=== PATIENT | male | born 2000 | race Caucasian/White ===

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

== ENCOUNTER 2022-04-28 06:20 | Emergency (ER) | payer OTHER, SELFPAY ==
[2022-04-28 06:21] VITALS: BP 147/83; PULSE 98; RESP 18; TEMP 35.9; O2SAT 100; BMI 29.5
--- NOTE | 2022-04-28 07:11 | RAD_ITS ---
STUDY: X-RAY - ABDOMEN/PELVIS REASON FOR EXAM: Male, 22 years old. ABDOMINAL PAIN TECHNIQUE: AP abdomen radiographs COMPARISON: None. FINDINGS: Normal visualized lung bases. There is a nonobstructive bowel gas pattern. A large amount of stool throughout the large bowel. There is no demonstrated free abdominal air. The visualized liver, spleen and kidneys are grossly normal in size and morphology. Normal soft tissue structures. Normal visualized osseous structures. RAD/Abdomen Single View IMPRESSION: Substantial stool throughout the large bowel suggests constipation. Electronically Signed: Kike Chinchilla MD at 7:30 EDT ,
--- NOTE | 2022-04-28 07:12 | EX.ED.DYSGE1 ---
HPI History of Present Illness Chief Complaint: Constipation Informant: patient Narrative Narrative: This is a 22-year-old male presenting to the emergency room with left-sided abdominal pain and constipation. Patient states that typically he will have a bowel movement once a day. He recently spoke to his doctor about IBS symptoms and has a follow-up appointment on Tuesday. It was recommended that he increase his vegetable content. States he has been taking the powder which has not been helping. Last bowel movement was 3 days ago. He denies any fever. He has been able to eat and drink. He notes a significant amount of water consumption while at work. He is presenting to the emergency department today wanting to make sure that it was constipation that was causing his pain. He describes the pain as intermittent left-sided and likens it to a sharp ache. [facility] Medical History ADHD Asthma Constipation Depression Migraine Recurrent streptococcal tonsillitis Home Medications albuterol sulfate 90 mcg/actuation aerosol inhaler (Ventolin HFA) 2 puff inhalation Q4H PRN PRN Wheezing #8.5 grams 12/16/21 [Rx Last Taken Unknown] cetirizine 10 mg capsule (Zyrtec) 10 mg PO HS #30 caps 12/16/21 [Rx Last Taken Unknown] epinephrine 0.3 mg/0.3 mL injection, auto-injector (EpiPen) 0.3 mg (0.3 mL) IM ONCE #1 ea 12/16/21 [Rx Last Taken Unknown] psyllium husk (with sugar) 3.4 gram/7 gram oral powder (Metamucil (with sugar)) 1 tbsp PO DAILY #822 grams 12/16/21 [Rx Last Taken Unknown] bupropion HCl 150 mg tablet,12 hr sustained-release (Wellbutrin SR) 150 mg PO BID #60 ea 12/17/21 [Rx Last Taken Unknown] sertraline 25 mg tablet (Zoloft) 25 mg PO DAILY #30 tabs 12/17/21 [Rx Last Taken Unknown] docusate sodium 100 mg capsule (Colace) 100 mg PO BID #60 caps 04/28/22 [Rx Last Taken Unknown] magnesium citrate 300 ml PO X1 PRN constipation #2 BOTTLES 04/28/22 [Rx Last Taken Unknown] Allergy/AdvReac Type Severity Reaction Status Date / Time cat dander Allergy Mild Other Verified 12/16/21 15:22 iodine Allergy Hives Verified 12/16/21 15:11 venom-honey bee Allergy Laryngospas Verified 12/16/21 15:11 [bee venom (honey bee)] ms Family History Brother Anxiety Migraine Mother Asthma Depression Father Depression Social History household members: family Smoking Status: Never smoker alcohol intake: never substance use type: marijuana what type of physical activity do you participate in: weight training frequency: 3-4 times per week do you feel safe at home: Yes ROS ROS ED Constitutional Constitutional ED: Denies chills or weight loss Eyes Eyes: Denies change in vision or diplopia ENT ENT ED: Denies ear pain, rhinorrhea or sore throat Cardiovascular Cardiovascular: Denies chest pain, orthopnea, palpitations or racing heartbeat Respiratory/Chest Respiratory/Chest: Denies cough, dyspnea or orthopnea Gastrointestinal Gastrointestinal: Reports abdominal pain and constipation; Denies diarrhea, nausea or vomiting Genitourinary Genitourinary ED: Denies dysuria, hematuria or urinary frequency Musculoskeletal Musculoskeletal: Denies arthralgias or myalgias Integumentary Denies abscess or rash Neurologic Neurologic: Denies headache(s) or weakness Psychiatric Psychiatric: Denies anxiety, depression, suicidal ideation or suicidal thoughts Endocrine Endocrinology: Denies polydipsia, polyphagia or polyuria Allergic/Immunologic Allergic/Immunologic ED: Denies mouth swelling, tongue swelling or urticaria EXAM Physical Exam Const Vital Signs: 04/28/22 06:21 Temperature 96.7 F L Temperature Source Temporal Pulse Rate 98 Respiratory Rate 18 Blood Pressure 147/83 H Blood Pressure Mean 104 Pulse Ox 100 Oxygen Delivery Method Room Air Positive well nourished and well developed General Appearance ED: well developed HEENT Reports normocephalic, head/scalp atraumatic and moist mucous membranes Eyes PERRL and EOMs intact bilaterally Neck no lymphadenopathy, supple and no JVD Resp normal respiratory effort and clear to auscultation bilaterally Cardio regular rate, regular rhythm and no murmurs GI normal to inspection, nondistended, normoactive bowel sounds and non-tender Inspection: Negative for abdominal distention Auscultation: normoactive bowel sounds Palpation: soft; Negative for tender, guarding or rebound tenderness present Back/Spine no CVA tenderness and normal ROM Extremity normal to inspection General Extremety ED: Negative for edema General Extremity: Negative for edema Neuro oriented x3 and CN's II-XII intact bilaterally Sensorium / Orientation: alert Motor Exam: strength 5/5 throughout Psych mental status grossly normal Mood & Affect: Negative for depressed or tearful Skin no rashes or lesions noted and no wounds MDM MDM MDM Narrative Medical decision making narrative: 22-year-old male presenting to the emergency room with left-sided abdominal pain and noting constipation for 3 days. My interpretation of the plain films of the abdomen is increased stool burden indicative of constipation. No free air noted. Patient states he is currently taking a powder think this might be MiraLAX or Metamucil. I will write for him to have a couple bottles of magnesium citrate and twice daily Colace. He has a follow-up appointment the end of the week to discuss this further. Radiography Diagnostic Testing: Clinical Impression(s) from Imaging Studies [facility] X-Ray 04/28/22 07:11 IMPRESSION: Substantial stool throughout the large bowel suggests constipation. Electronically Signed: Kike Chinchilla MD at 7:30 EDT , Discharge Plan Triage Chief Complaint: Constipation ED Provider: You Borges Dx/Rx/DC Orders Clinical Impression: Acute constipation, Abdominal pain Instructions: Treating Constipation Prescriptions: New docusate sodium [Colace] 100 mg capsule 100 mg PO BID Qty: 60 0RF magnesium citrate Solution 300 ml PO X1 PRN (Reason: constipation) Qty: 2 0RF No Action Zyrtec 10 mg capsule 10 mg PO HS Qty: 30 1RF epinephrine [EpiPen] 0.3 mg/0.3 mL auto-injector 0.3 mg IM ONCE Qty: 1 0RF Rx Instructions: as a single dose; may repeat once Metamucil (with sugar) 3.4 gram/7 gram powder 1 tbsp PO DAILY Qty: 822 0RF albuterol sulfate [Ventolin HFA] 90 mcg/actuation HFA aerosol inhaler 2 puff inhalation Q4H PRN PRN (Reason: Wheezing) Qty: 8.5 1RF bupropion HCl [Wellbutrin SR] 150 mg tablet sustained-release 12 hr 150 mg PO BID Qty: 60 1RF Rx Instructions: Take 1 tablet daily for 3 days, then increase to 1 tablet twice daily sertraline [Zoloft] 25 mg tablet 25 mg PO DAILY Qty: 30 1RF Primary Care Provider: Cristine James Referrals: Cristine James MD [Primary Care Provider] - [facility] appointment Disposition Disposition: Home, Self Care
== END 2022-04-28 07:57 | disposition home or self-care (01) ==
PROVIDERS: Emergency Provider Emergency Medicine; PCP Internal Medicine; Visit Provider Emergency Medicine
DX: K59.00 Constipation, unspecified (principal); R10.9 Unspecified abdominal pain; J45.909 Unspecified asthma, uncomplicated
CPT/HCPCS: 74018; 99282